=== PATIENT | female | born 1970 | race Caucasian/White ===

== ENCOUNTER 2019-01-03 10:44 | Emergency (ER) | payer OTHER, SELFPAY ==
--- NOTE | 2019-01-03 11:40 | PC.NURSE ---
1140: Social work notified of consult. Pt placed in green paper scrubs. Medicated with ativan per MAY. 1152: Pt AAOx3. reports she has been feeling suicidal x 2 years. i used to go to a ketamine clinic but it got to expensive Reports the ketamine clinic did help her thoughts. When asked if she has a plan pt shouted, you are the 3rd person to ask me that since i walked in! of course i have a plan, suicide is verb i wouldn't say i was suicidal if i didn't have a plan, and no, i'm not telling you what it is. Reports she met with the CPit team yesterday for about 2 hours and was told to call [facility] this morning, which she reports she did. they told me that i dont have medicaid and they are state funded so they cant help me now pt states she is angry and the system and she reached out for help. pt is tearful. given water and warm blanket and pt sitting against wall with eyes closed. ROBERT Madera sitting outside room for continuous observation.
--- NOTE | 2019-01-03 11:40 | ED.PSYCH ---
HPI - Psych <ORQUIDEA Mejias-BC - Last Filed: 01/03/19 20:04> General Chief Complaint: Psychiatric Symptoms Stated Complaint: melt down emergency one she says Time Seen by Provider: 01/03/19 11:02 Source: patient Mode of arrival: Ambulatory Limitations: no limitations History of Present Illness HPI Narrative: The patient is a 48-year-old female current smoker with history of depression who presents with a chief complaint. of ?I have had a meltdown she states that she called the crisis line due to suicidal plans yesterday in the spoke with her for 2 hours. She tried to followup [facility] this morning, but states that they would not see her related to her insurance. She states that she is suicidal with multiple plans, but will not discussed with these plans are. The patient is swearing and teary upon arrival. She is requesting ketamine as she has had good success with ketamine clinic prior. She denies any drug or alcohol abuse. She is adamant that she has multiple suicidal plans, and does not want to discuss why she was suicidal or her plans. She states that I do not need to know what they are, and discussing them will make her feel worse. Related Data Home Medications Medication Instructions Recorded Confirmed No Known Home Medications 01/03/19 01/03/19 Allergies Allergy/AdvReac Type Severity Reaction Status Date / Time No Known Drug Allergies Allergy Verified 01/03/19 10:59 Review of Systems <ORQUIDEA Mejias- - Last Filed: 01/03/19 20:04> Review of Systems Narrative: GENERAL: Denies chills, fatigue, malaise, fever, sweats. HEENT: Denies sinus pain, ear pain, sore throat, difficulty swallowing, dizziness. RESPIRATORY: Denies dyspnea, cough, wheezing, hemoptysis, sputum. CARDIOVASCULAR: Denies chest pain, palpitations, orthopnea, edema, GASTROINTESTINAL: Denies nausea, vomiting, abdominal pain, diarrhea, constipation, melena. : Denies dysuria, frequency, incontinence, hematuria, urinary retention. MUSCULOSKELETAL: denies weakness, joint pain, or bony pain SKIN: Denies rash, skin lesions, or other NEUROLOGIC: Denies weakness, headache, numbness, change in speech, confusion, seizures, incoordination. PSYCHIATRIC: See HPI 12 point review of systems is negative except for those stated above Patient History <Yuliya Stewart [employer]NAGER [employer]BC - Last Filed: 01/03/19 20:04> Social History Smoking Status: Current some day smoker alcohol intake frequency: holidays/special occasions only Substance Use Type: marijuana Exam <Yuliya DOROTEO Stewart - Last Filed: 01/03/19 20:04> Narrative Exam Narrative: GENERAL: This is a well-nourished, well-developed patient, appears anxious and crying HEAD: Atraumatic. Normocephalic. No temporal or scalp tenderness. EYES: Pupils equal round and reactive. Extraocular motions intact. No scleral icterus. No injection or drainage. ENT: Nose without bleeding, purulent drainage or septal hematoma. Throat without erythema, tonsillar hypertrophy or exudate. Uvula midline. Airway patent. NECK: Trachea midline. No JVD or lymphadenopathy. Supple, nontender, no meningeal signs. CARDIOVASCULAR: Regular rate and rhythm without murmurs, gallops, or rubs. RESPIRATORY: Clear to auscultation. Breath sounds equal bilaterally. No wheezes, rales, or rhonchi. No cough. No increased respiratory effort. No accessory muscle use. GASTROINTESTINAL: Abdomen soft, non-tender, nondistended. No hepato-splenomegaly, or palpable masses. No guarding. EXTREMITIES: No clubbing, cyanosis, or edema. No joint tenderness, effusion, or edema noted. BACK: Nontender without deformity or crepitance. No flank tenderness. NEURO: AOx3. Withdrawn SKIN: No rash or erythema visible skin Initial Vital Signs Initial Vital Signs: Vital Signs Temperature 98.7 F 01/03/19 12:39 Pulse Rate 79 01/03/19 12:39 Respiratory Rate 16 01/03/19 12:39 Blood Pressure 122/85 01/03/19 12:39 Pulse Oximetry 97 01/03/19 12:39 <Monroe Jensen MD - Last Filed: 01/14/19 18:19> Initial Vital Signs Initial Vital Signs: Vital Signs Temperature 98.7 F 01/03/19 12:39 Pulse Rate 79 01/03/19 12:39 Respiratory Rate 16 01/03/19 12:39 Blood Pressure 122/85 01/03/19 12:39 Pulse Oximetry 97 01/03/19 12:39 Course <Yuliya DOROTEO Stewart - Last Filed: 01/03/19 20:04> Orders Ordered: Discontinued Medications Lorazepam (Ativan) 1 mg PO NOW ONE Stop: 01/03/19 11:37 Last Admin: 01/03/19 11:51 Dose: 1 mg Documented by: ERIC Lorazepam (Ativan) 1 mg PO PRN PRN PRN Reason: Anxiety Last Admin: 01/03/19 18:51 Dose: 1 mg Documented by: Admin: 01/03/19 14:37 Dose: 1 mg Documented by: ERIC Vital Signs Vital signs: Vital Signs - 8 hr 01/03/19 12:39 01/03/19 18:53 01/03/19 19:10 Temperature 98.7 F 97.9 F Pulse Rate 79 95 H Respiratory Rate 16 18 Blood Pressure [Right Arm] 122/85 130/80 Pulse Oximetry 97 98 98 <Monroe Jensen MD - Last Filed: 01/14/19 18:19> Orders Ordered: Discontinued Medications Lorazepam (Ativan) 1 mg PO NOW ONE Stop: 01/03/19 11:37 Last Admin: 01/03/19 11:51 Dose: 1 mg Documented by: ERIC Lorazepam (Ativan) 1 mg PO PRN PRN PRN Reason: Anxiety Last Admin: 01/03/19 18:51 Dose: 1 mg Documented by: Admin: 01/03/19 14:37 Dose: 1 mg Documented by: ERIC Vital Signs Vital signs: Vital Signs - 8 hr 01/03/19 12:39 01/03/19 18:53 01/03/19 19:10 Temperature 98.7 F 97.9 F Pulse Rate 79 95 H Respiratory Rate 16 18 Blood Pressure [Right Arm] 122/85 130/80 Pulse Oximetry 97 98 98 MDM - Psych <DOROTEO Mejias - Last Filed: 01/03/19 20:04> Lab Data Result diagrams: 01/03/19 11:35 01/03/19 11:35 Labs: Lab Results 01/03/19 01/03/19 01/03/19 Range/Units 11:35 11:35 11:35 WBC 7.8 (4.5-11.0) X10^3/uL RBC 4.70 (4.0-5.2) X10^6/uL Hgb 14.7 (12.0-16.0) g/dL Hct 42.7 (36-46) % MCV 90.8 (80-100) fL MCH 31.3 (26-34) PG MCHC 34.5 (30-36) % RDW 13.7 (11.6-14.8) % Plt Count 335 (150-400) X10^3/uL Neut % (Auto) 67.3 (50-75) % Lymph % (Auto) 22.5 L (25-40) % [place] % (Auto) 6.6 (3-14) % Eos % (Auto) 3.0 (2-4) % Baso % (Auto) 0.6 (0-2) % Neut # (Auto) 5300 (9679-1354) /uL Lymph # (Auto) 1800 (8083-3503) /uL [place] # (Auto) 500 (0-900) /uL Eos # (Auto) 200 (0-450) /uL Baso # (Auto) 0 (0-100) /uL Sodium 142 (137-145) mmol/L Potassium 4.4 (3.4-5.1) mmol/L Chloride 106 (98-107) mmol/L Carbon Dioxide 25 (22-32) mmol/L BUN 12 (7-17) mg/dL Creatinine 0.80 (0.52-1.04) mg/dL Estimated GFR > 60.0 (>60) mL/min BUN/Creatinine Ratio 15.0 (6-22) Glucose 122 H (70-100) mg/dL Calcium 10.0 (8.4-10.2) mg/dL Total Bilirubin 0.7 (0.2-1.3) mg/dL AST 40 H (14-36) IU/L ALT 31 (9-52) IU/L Alkaline Phosphatase 92 (38-126) U/L Total Protein 8.7 H (6.3-8.2) g/dL Albumin 5.1 H (3.5-5.0) g/dL Globulin 3.6 (1.7-4.1) g/dL Albumin/Globulin Ratio 1.4 (1.0-2.8) TSH 1.81 (0.47-4.68) uIU/mL Salicylates 2.8 (<20) mg/dL U Morph 300 ng/mL cutoff (Negative) Ur Oxycodone Screen (Negative) Urine Methadone Screen (Negative) Acetaminophen < 10 L (10-30) ug/mL Ur Barbiturates Screen (Negative) U Tricyclic Antidepress (Negative) Ur Phencyclidine Scrn (Negative) Ur Amphetamines Screen (Negative) U Methamphetamines Scrn (Negative) Ur MDMA Scrn (Ecstasy) (Negative) U Benzodiazepines Scrn (Negative) Urine Cocaine Screen (Negative) U Marijuana (THC) Screen (Negative) Ethyl Alcohol < 10 ( - 10) mg/dL 01/03/19 Range/Units 11:40 WBC (4.5-11.0) X10^3/uL RBC (4.0-5.2) X10^6/uL Hgb (12.0-16.0) g/dL Hct (36-46) % MCV (80-100) fL MCH (26-34) PG MCHC (30-36) % RDW (11.6-14.8) % Plt Count (150-400) X10^3/uL Neut % (Auto) (50-75) % Lymph % (Auto) (25-40) % [place] % (Auto) (3-14) % Eos % (Auto) (2-4) % Baso % (Auto) (0-2) % Neut # (Auto) (4095-7758) /uL Lymph # (Auto) (7930-5444) /uL [place] # (Auto) (0-900) /uL Eos # (Auto) (0-450) /uL Baso # (Auto) (0-100) /uL Sodium (137-145) mmol/L Potassium (3.4-5.1) mmol/L Chloride (98-107) mmol/L Carbon Dioxide (22-32) mmol/L BUN (7-17) mg/dL Creatinine (0.52-1.04) mg/dL Estimated GFR (>60) mL/min BUN/Creatinine Ratio (6-22) Glucose (70-100) mg/dL Calcium (8.4-10.2) mg/dL Total Bilirubin (0.2-1.3) mg/dL AST (14-36) IU/L ALT (9-52) IU/L Alkaline Phosphatase (38-126) U/L Total Protein (6.3-8.2) g/dL Albumin (3.5-5.0) g/dL Globulin (1.7-4.1) g/dL Albumin/Globulin Ratio (1.0-2.8) TSH (0.47-4.68) uIU/mL Salicylates (<20) mg/dL U Morph 300 ng/mL cutoff Negative (Negative) Ur Oxycodone Screen Negative (Negative) Urine Methadone Screen Negative (Negative) Acetaminophen (10-30) ug/mL Ur Barbiturates Screen Negative (Negative) U Tricyclic Antidepress Negative (Negative) Ur Phencyclidine Scrn Negative (Negative) Ur Amphetamines Screen Negative (Negative) U Methamphetamines Scrn Negative (Negative) Ur MDMA Scrn (Ecstasy) Negative (Negative) U Benzodiazepines Scrn Negative (Negative) Urine Cocaine Screen Negative (Negative) U Marijuana (THC) Screen Positive H (Negative) Ethyl Alcohol ( - 10) mg/dL Point of Care Testing Test Results Negative Urine Dip Bedside Urine Glucose Negative Bedside Urine Bilirubin - Negative Bedside Urine Ketone - Negative Urine Specific Hubbell 1.010 Bedside Urine Occult Blood +/- Bedside Urine pH 6.0 Bedside Urine Protein - Negative Bedside Urine Urobilinogen - Negative Bedside Urine Nitrite - Negative Bedside Urine Leukocytes - Negative Esterase MDM Narrative Medical decision making narrative: The patient is a 48-year-old female presents with a chief complaint of suicidal ideations with plan. She has a history of depression, states that she spoke with crisis workers for 2 hours last night. She states that she has multiple plans, but does not admit to with they are. She does not admit any cause for her depression or events leading up to her depression. She states that she does not want to kill herself on her mother's birthday, which is today. The patient is very unclear regarding her suicidal plans, her history and very teary and withdrawn. She presents for voluntary admission, and would like to receive ketamine which she has had success with in the past. She states that she would like to have ketamine for depression in the emergency department, but I discussed that is not possible. I am very concerned given her presentation and her history, and feels though she would benefit from inpatient psychiatric care. The patient repeatedly requests ketamine infusions in the emergency department to treat her depression, which I state we do not do. She was evaluated by our clinical social work aide, who recommended inpatient placement on a voluntary basis at this point time. She was accepted at [facility]. The patient is cooperative throughout her stay in the emergency department, did get a few doses of lorazepam p.o.. She was given water and food. She repeatedly requested ketamine infusions, which I stated we do not do. I discussed that inpatient psychiatric care is not just medication management as she presumes. She was accepted at [facility] and transportation was arranged. Patient states understanding of hospitalization as well as plan of care. She has been cooperative throughout her stay, with her at her bedside. She was transferred to EMS at 7:20 p.m. <Monroe Jensen MD - Last Filed: 01/14/19 18:19> Lab Data Labs: Lab Results 01/03/19 01/03/19 01/03/19 Range/Units 11:35 11:35 11:35 WBC 7.8 (4.5-11.0) X10^3/uL RBC 4.70 (4.0-5.2) X10^6/uL Hgb 14.7 (12.0-16.0) g/dL Hct 42.7 (36-46) % MCV 90.8 (80-100) fL MCH 31.3 (26-34) PG MCHC 34.5 (30-36) % RDW 13.7 (11.6-14.8) % Plt Count 335 (150-400) X10^3/uL Neut % (Auto) 67.3 (50-75) % Lymph % (Auto) 22.5 L (25-40) % [place] % (Auto) 6.6 (3-14) % Eos % (Auto) 3.0 (2-4) % Baso % (Auto) 0.6 (0-2) % Neut # (Auto) 5300 (1120-1362) /uL Lymph # (Auto) 1800 (6320-1624) /uL [place] # (Auto) 500 (0-900) /uL Eos # (Auto) 200 (0-450) /uL Baso # (Auto) 0 (0-100) /uL Sodium 142 (137-145) mmol/L Potassium 4.4 (3.4-5.1) mmol/L Chloride 106 (98-107) mmol/L Carbon Dioxide 25 (22-32) mmol/L BUN 12 (7-17) mg/dL Creatinine 0.80 (0.52-1.04) mg/dL Estimated GFR > 60.0 (>60) mL/min BUN/Creatinine Ratio 15.0 (6-22) Glucose 122 H (70-100) mg/dL Calcium 10.0 (8.4-10.2) mg/dL Total Bilirubin 0.7 (0.2-1.3) mg/dL AST 40 H (14-36) IU/L ALT 31 (9-52) IU/L Alkaline Phosphatase 92 (38-126) U/L Total Protein 8.7 H (6.3-8.2) g/dL Albumin 5.1 H (3.5-5.0) g/dL Globulin 3.6 (1.7-4.1) g/dL Albumin/Globulin Ratio 1.4 (1.0-2.8) TSH 1.81 (0.47-4.68) uIU/mL Salicylates 2.8 (<20) mg/dL U Morph 300 ng/mL cutoff (Negative) Ur Oxycodone Screen (Negative) Urine Methadone Screen (Negative) Acetaminophen < 10 L (10-30) ug/mL Ur Barbiturates Screen (Negative) U Tricyclic Antidepress (Negative) Ur Phencyclidine Scrn (Negative) Ur Amphetamines Screen (Negative) U Methamphetamines Scrn (Negative) Ur MDMA Scrn (Ecstasy) (Negative) U Benzodiazepines Scrn (Negative) Urine Cocaine Screen (Negative) U Marijuana (THC) Screen (Negative) Ethyl Alcohol < 10 ( - 10) mg/dL 01/03/19 Range/Units 11:40 WBC (4.5-11.0) X10^3/uL RBC (4.0-5.2) X10^6/uL Hgb (12.0-16.0) g/dL Hct (36-46) % MCV (80-100) fL MCH (26-34) PG MCHC (30-36) % RDW (11.6-14.8) % Plt Count (150-400) X10^3/uL Neut % (Auto) (50-75) % Lymph % (Auto) (25-40) % [place] % (Auto) (3-14) % Eos % (Auto) (2-4) % Baso % (Auto) (0-2) % Neut # (Auto) (0417-0995) /uL Lymph # (Auto) (7612-8543) /uL [place] # (Auto) (0-900) /uL Eos # (Auto) (0-450) /uL Baso # (Auto) (0-100) /uL Sodium (137-145) mmol/L Potassium (3.4-5.1) mmol/L Chloride (98-107) mmol/L Carbon Dioxide (22-32) mmol/L BUN (7-17) mg/dL Creatinine (0.52-1.04) mg/dL Estimated GFR (>60) mL/min BUN/Creatinine Ratio (6-22) Glucose (70-100) mg/dL Calcium (8.4-10.2) mg/dL Total Bilirubin (0.2-1.3) mg/dL AST (14-36) IU/L ALT (9-52) IU/L Alkaline Phosphatase (38-126) U/L Total Protein (6.3-8.2) g/dL Albumin (3.5-5.0) g/dL Globulin (1.7-4.1) g/dL Albumin/Globulin Ratio (1.0-2.8) TSH (0.47-4.68) uIU/mL Salicylates (<20) mg/dL U Morph 300 ng/mL cutoff Negative (Negative) Ur Oxycodone Screen Negative (Negative) Urine Methadone Screen Negative (Negative) Acetaminophen (10-30) ug/mL Ur Barbiturates Screen Negative (Negative) U Tricyclic Antidepress Negative (Negative) Ur Phencyclidine Scrn Negative (Negative) Ur Amphetamines Screen Negative (Negative) U Methamphetamines Scrn Negative (Negative) Ur MDMA Scrn (Ecstasy) Negative (Negative) U Benzodiazepines Scrn Negative (Negative) Urine Cocaine Screen Negative (Negative) U Marijuana (THC) Screen Positive H (Negative) Ethyl Alcohol ( - 10) mg/dL Point of Care Testing Test Results Negative Urine Dip Bedside Urine Glucose Negative Bedside Urine Bilirubin - Negative Bedside Urine Ketone - Negative Urine Specific Hubbell 1.010 Bedside Urine Occult Blood +/- Bedside Urine pH 6.0 Bedside Urine Protein - Negative Bedside Urine Urobilinogen - Negative Bedside Urine Nitrite - Negative Bedside Urine Leukocytes - Negative Esterase Discharge Plan Departure Patient Disposition: Xfer Psychiatric Hosp Clinical Impression: Suicide ideation Discharge Date/Time: 01/03/19 19:05
[2019-01-03 11:43] LABS: Add Manual Diff / Slide Review NO; Basophils Absolute Auto 0 /uL (0-100); Basophils Percent Auto 0.6 % (0-2); Eosinophils Absolute Auto 200 /uL (0-450); Hematocrit 42.7 % (36-46); Hemoglobin 14.7 g/dL (12.0-16.0); Lymphocytes Absolute Auto 1800 /uL (1100-4500); Lymphocytes Percent Auto 22.5 % (25-40); Mean Corpuscular HGB Conc 34.5 % (30-36); Mean Corpuscular Hemoglobin 31.3 PG (26-34); Mean Corpuscular Volume 90.8 fL (80-100); Monocytes Absolute Auto 500 /uL (0-900); Monocytes Percent Auto 6.6 % (3-14); Neutrophils Absolute Auto 5300 /uL (1500-7000); Neutrophils Percent Auto 67.3 % (50-75); Platelet Count 335 X10^3/uL (150-400); Red Cell Distribution Width 13.7 % (11.6-14.8); White Blood Cell Count 7.8 X10^3/uL (4.5-11.0)
[2019-01-03] MEDS: LORazepam 0.5 MG TABLET 1 MG PO ×3 (11:51→18:51)
[2019-01-03 11:56] LABS: Acetaminophen < 10 ug/mL (10-30); Alanine Aminotransferase 31 IU/L (9-52); Albumin 5.1 g/dL (3.5-5.0); Albumin Globulin Ratio 1.4 (1.0-2.8); Alkaline Phosphatase 92 U/L (38-126); Aspartate Aminotransferase 40 IU/L (14-36); Bilirubin Total 0.7 mg/dL (0.2-1.3); Blood Urea Nitrogen 12 mg/dL (7-17); Carbon Dioxide 25 mmol/L (22-32); Chloride 106 mmol/L (98-107); Estimated Glomerular Filt Rate > 60.0 mL/min (>60); Ethanol (ETOH) < 10 mg/dL; Globulin 3.6 g/dL (1.7-4.1); Glucose 122 mg/dL (70-100); HEMOLYSIS < 15 (0-50); Potassium 4.4 mmol/L (3.4-5.1); Salicylate 2.8 mg/dL (<20); Sodium 142 mmol/L (137-145); Total Protein 8.7 g/dL (6.3-8.2)
[2019-01-03 12:00] LABS: UR Morphine/Opiate cutoff 300 Negative (Negative); Ur Creatinine Normal (Normal); Ur Specific Gravity Normal (Normal); Urine Amphetamines Negative (Negative); Urine Barbiturates Negative (Negative); Urine Benzodiazepines Negative (Negative); Urine Cocaine Negative (Negative); Urine MDMA Negative (Negative); Urine Methadone Negative (Negative); Urine Methamphetamines Negative (Negative); Urine Oxycodone Negative (Negative); Urine Phencyclidine Negative (Negative); Urine Tetrahydrocannabinol Positive (Negative); Urine Tricyclic Antidepressant Negative (Negative); Urine pH Normal (Normal)
--- NOTE | 2019-01-03 12:34 | PC.NURSE ---
pt sitting on gurney with eyes closed. Pts mental Health advisor on phone speaking with ABDI Milton
[2019-01-03 12:39] VITALS: BP 122/85; PULSE 79; RESP 16; TEMP 37.1; O2SAT 97
[2019-01-03 12:39] LABS: Thyroid Stimulating Hormone 1.81 uIU/mL (0.47-4.68)
--- NOTE | 2019-01-03 12:40 | PC.NURSE ---
Pt agreeable to SENIOR COST ESTIMATOR checking vital signs. Pt offered meal, pt declined.
--- NOTE | 2019-01-03 13:09 | PC.NURSE ---
Vidhya with SW is in room speaking with the pt
--- NOTE | 2019-01-03 13:16 | PC.NURSE ---
Spoke on phone with crisis responder Parrish, who was dispatched to [place] this morning. Reports he had discussion yesterday with patient who reported her suicidal ideation without attempt and has been feeling suicidal x 1 month. Parrish reported pt's plan of ingesting mushrooms, hanging herself, or slitting her wrists but voiced that she does not want to kill herself on [facility]. concerned that she was not home this morning. contacted and made aware that pt is safe. pt is calm and cooperative at this time. resting in bed. footwear factory worker in to speak with pt.
--- NOTE | 2019-01-03 13:30 | PC.NURSE ---
Staff offered pt magazines and playing cards. Pt refused both
--- NOTE | 2019-01-03 13:40 | PC.NURSE ---
Arvind, # [phone] (cell) [phone] (home)
--- NOTE | 2019-01-03 13:53 | PC.NURSE ---
pt laying in bed with door partially shut. This FUNDS TRANSFER CLERK is still in view of pt and providing constant observation
--- NOTE | 2019-01-03 14:02 | PC.NURSE ---
Pt's Arvind is at bedside
--- NOTE | 2019-01-03 14:25 | CM.SWNOTE ---
Addendum entered by EVANS Alvarado 01/03/19 15:38: ADD: SW called [facility] to inquire if they know of any local Inpt MH tx facilities that provide Ketamine tx and had to leave a msg. SW called [facility] spoke to Eugenio with intake and they have an opening and willing to review but do not provide Ketamine tx. SW faxed clinical packet to review to [phone]. SW called [facility] and they have an opening at their [place] location and willing to review but also do not provide Ketamine tx. SW faxed clinicals to review to [phone]. SW updated RN and MD and handing off placement to the ED staff as SW shift about to end for the day. EVANS Alvarado Original Note: MH Assessment: [facility]MP GRADER will begin process of attempting Voluntary Inpt MH tx at this time as patient is not safe for d/c to the community at this time. Discharge Planning/Care Management ED Mental Health Evaluation Status Start: 01/03/19 10:58 Freq: Status: Active Protocol: Document 01/03/19 11:00 CTS (Rec: 01/03/19 14:22 [facility] [id number]) Mental Health Evaluation Status Mental Health Evaluation Status Pending ED Psychiatric Symptoms Assessment Start: 01/03/19 10:58 Freq: Status: Active Protocol: Document 01/03/19 11:00 CTS (Rec: 01/03/19 14:20 CTS [id number]) Psychiatric Symptoms Assessment Symptoms/Complaint Suicidal Ideation Onset 1 month, chronically x 2 yrs Duration Constant History Of Same Yes Context Unknown Improves With Medication Worsens With Nothing Associated Psychiatric Symptoms None Associated Symptoms Denies Other Symptoms If Self Harm Admits Thoughts of Self Harm, Has Plans Details of Plan refused to verbalize plan with RN Level of Consciousness Alert Patient Orientation Name,Age,Birthday,Month,Date, Year,Day of Week,Place, Situation Patient Behavior/Mood Cooperative,Crying/Tearful Ability to Follow Directions Excellent Patient Cognition Impaired No Affect Description Calm Patient Appearance Well Groomed Hallucination Type None Thought Process: Normal Depressive Symptoms Hopelessness Major Depressive Episode Yes Feelings of Hopelessness Yes Suicidal Ideation Constant Suicide Plan Feasible Homicidal Ideation None Nausea/Vomiting None Document 01/03/19 13:00 CTS (Rec: 01/03/19 14:20 [facility] [id number]) Psychiatric Symptoms Assessment Symptoms/Complaint Suicidal Ideation Duration Constant History Of Same Yes Improves With Medication Worsens With Nothing Associated Psychiatric Symptoms None Associated Symptoms Denies Other Symptoms If Self Harm Admits Thoughts of Self Harm Level of Consciousness Alert,Appropriate Patient Orientation Name,Age,Birthday,Month,Date, Year,Day of Week,Place, Situation Patient Behavior/Mood Cooperative Ability to Follow Directions Excellent Patient Cognition Impaired No Affect Description Calm Patient Appearance Well Groomed Hallucination Type None Delusion Description Not Present Thought Process: Normal Depressive Symptoms Hopelessness Major Depressive Episode Yes Feelings of Hopelessness Yes Suicidal Ideation Constant Suicide Plan Feasible Homicidal Ideation None Nausea/Vomiting None DU[employer] GRADER - Health Data Administrator Assessment Start: 01/03/19 13:54 Freq: Status: Active Protocol: Document 01/03/19 13:54 BF (Rec: 01/03/19 14:25 BF [id number]) DUMP GRADER/Health Data Administrator Assessment Start date 01/03/19 Visit Start Time 13:00 Visit End Time 13:40 Total Time With Patient 40 min Presenting Problem Patient presented to the ER with suicidal ideation with multiple plans and not safe for d/c to community as she met with Crisis Responder at home yesterday for safety planning and was not able to establish with outpt support. Precipitating Event(s) Pt unable to identify specific triggering event but states she has struggled with chronic depression and suicidal ideation for 2 years with lack of sleep and is frustrated and at her wits end. Current Behavioral Health Provider(s) Pt currently not established Include Facility, Provider, Ph. # with MH provider but has attempted many different providers over the past 2 years including therapist for EMDR tx, depression therapy, acupunture, homeopathy, etc.. with no relief in symptoms. Psych. Hx Mental Health and Chemical Pt denies any inpt MH tx but Dependency has attempted many outpt MH therapy providers along with med management for mulitple antidepressants without relief . Pt states that her best results were from nasal Ketamine and therapy but the therapist could not accept her insurance and therefore she didn't want to keep taking Ketamine without therapy guidance. Psychiatric Hospitalizations (date(s)/ Denies location) Support System(s) Patient lives remotely on [address] with her and only identifies as her support and mother and sister live in [place] and they have a strained relationship. School/Work Pt states she has been unable to hold a job for the past 2 years due to her depression symptoms. Legal Matters - Outstanding Issues Denies Orientation (Person/Place/Time) Pt is alert and oriented x3 Affect Pt shifts between tearful and upset to agitated and frustrated that she has been seeking support/therapy for two years without relief. Thought Content - Specify/Describe Pt denies any auditory or Obsessions, Delusions, Hallucinations visual hallucinations and does not appear to be reacting to any internal or external stimuli. Pt is focused on her previous experience with nasal Ketamine that she received the most relief of her symptoms from. Thought Processes (Meoztvi-Jecemszx-Nzmr Pt appears to have some Rwaqscun-Wfrydoqz-Mekqfoskbw- disorganized thought but goal Dzjrosigkzasqf-Nwllbob-Jnshttlwnrkv- directed and is seeking relief Thought Blocking) of her symptoms and is desperate to get established with mental health services and ketamine. Speech (Uqobdf-Unex-Anzkofg-Rapid-Soft- Speech is normal and soft, not Loud-Pressured) pressured Motor (Dxscls-Nzuclglvv-Ketv-Other) Motor appears to be slow but received a dose of Ativan previously. Insight (Present-Partially Present- Insight is present but Impaired) somewhat impaired by her overwhelming suicidal ideation and hopelessness. Judgement (Intact-Impaired) Judgement is impaired by hopelessness Memory (Sizwrwoyo-Gtrzas-Oqkuxd, Memory appears intact and able Impaired-Intact) to report her experience with [facility] Crisis Responder yesterday. Behavior (Appropriate-Inappropriate) Pt flexes between agitation with lack of depression relief and tearful hopelessness. Additional Comment Pt confirms that she has had sleep disturbances for the past 2 years and has a chronic lack of sleep and recently has not felt hungry. Suicidal Ideation (Plan) Yes: cutting wrists, overdose on drugs, etc.. Homicidal Ideation (Plan) No Intervention DUMP GRADER met bedside with pt in the ER and pt able to confirm that she has ongoing suicidal ideation with multiple plans and lives remotely on [address] with her and barriers to [place] . Pt is requesting relief of her symptoms as she has struggled for 2 years with attempting many outpt least restrictive alternatives for depression and suicidal ideation relief without lasting success. Pt very hopeless and frustrated and unable to remain safely in the community with least restrictive alternative at this time. Pt was assessed yesterday by Crisis Responder from [facility] after pt called the Crisis Line. Pt attempted getting enrolled with [facility] for next day appointment but her insurance was a barrier. Pt denies any hx of Inpt MH tx and DUMP GRADER called [facility] for an MIS check and confirmed they have no record of Inpt Tx. Pt agreeable with Inpt MH tx although she is requesting support with getting established with nasal Ketamine and outpt therapist who understands Ketamine tx so that she can get sleep and depression relief. RA Plan Due to patient failing multiple outpt treatment attempts and voluntarily seeking treatment support for her chronic depression and suicidal ideation with plan, pt is unsafe for d/c to the community at this time. DUMP GRADER and discussed pt situation and feel that pt requires Inpt MH tx at this time for stabilization and med management with support of establishing with outpt providers when ready for return to community.
--- NOTE | 2019-01-03 15:09 | PC.NURSE ---
Vidhya with [facility] called to say Kulwant and isa are reviewing her chart.
--- NOTE | 2019-01-03 16:32 | PC.NURSE ---
RN went in and updated pt
--- NOTE | 2019-01-03 16:36 | PC.NURSE ---
pt speaking on the phone with kobe
--- NOTE | 2019-01-03 17:06 | PC.NURSE ---
pt spoke with Brittany at [facility] [phone]. pt states she wanted more time to think about it and now she is willing to go, i've left a message to have Brittany call back to set up arrangements. joya rn
--- NOTE | 2019-01-03 17:40 | PC.NURSE ---
Patient's is at bedside. Brought her food to eat. She is calmly sitting on stretcher and conversing with . Denies need for any anxiety medication at this time.
--- NOTE | 2019-01-03 18:23 | PC.NURSE ---
pt aware of acceptance to [facility], she is compliant with the plan
[2019-01-03 18:53] VITALS: BP 130/80; RESP 18; TEMP 36.6; O2SAT 98
[2019-01-03 19:10] VITALS: PULSE 95; O2SAT 98
== END 2019-01-03 19:05 ==
PROVIDERS: Emergency Provider Nurse Practitioner Family
DX: R45.851 Suicidal ideations (principal)
CPT/HCPCS: 36415; 80053; 80305; 80320; 80329; 81003; 81025; 84443; 85025; 99284; G0480